=== PATIENT | male | born 1960 | race Caucasian/White ===

== ENCOUNTER 2019-03-29 07:35 | Day surgery (SDC) | payer BC ==
[~2019-03-29] VITALS: Ht 180.3 cm; Wt 82.9 kg
[2019-03-29] VITALS (9 sets, daily range): BP systolic 99–139; BP diastolic 75–92; PULSE 55–74; TEMP 97.3–97.8
--- NOTE | 2019-03-29 09:05 | NUR ---
Pt returns from endo procedure. Pt ambulates from cart to recliner with RN assist. Monitors on and alarms set. Call light within reach. Report received from KLARISSA Mendoza. Pt is very drowsy, but answers questions appropriately but slowly. Pt's gag reflex has not returned. Pt has no complaints of pain or nausea. Family not present in waiting room.
--- NOTE | 2019-03-29 09:15 | NUR ---
Pt remains drowsy, but answers appropriately.
--- NOTE | 2019-03-29 09:30 | NUR ---
Pt remains drowsy and answers questions appropriately and with delay. Admitting nurse stated this was how he responded pre-operatively.
--- NOTE | 2019-03-29 09:45 | NUR ---
Pt remains drowsy and with no complaints.
--- NOTE | 2019-03-29 10:00 | NUR ---
Pt's gag reflex still not returned. Pt remains drowsy and answering questions as before.
--- NOTE | 2019-03-29 10:15 | NUR ---
Pt remains as prior. No complaints.
--- NOTE | 2019-03-29 10:21 | NUR ---
Pt's gag reflex still not present. Give pt sips of cold water. Pt takes water well and without complication.
--- NOTE | 2019-03-29 10:30 | NUR ---
Pt remains drowsy, less so than before, but still drowsy. Pt has no complaints.
--- NOTE | 2019-03-29 10:45 | NUR ---
Pt more alert now. Pt answers questions appropriately and still with delay as pre-operatively. Pt desiring discharge. Son present and brought to room.
--- NOTE | 2019-03-29 11:00 | NUR ---
Discharge instructions given to patient and son. Encouraged both to stop by their pharmacy to fill and pickling operator the PPI that had already been prescribed. Both voiced understanding.
--- NOTE | 2019-03-29 11:00 | NUR ---
Discharge instructions given to patient and son. Encouraged both to stop by their pharmacy to fill and leaf size picker the PPI that had already been prescribed. Both voiced understanding. Handed to patient are a thank you card, discharge instructions, diagnosis information, procedural photos, and a discharge med sheet. All questions answered to their satisfaction.
--- NOTE | 2019-03-29 11:20 | NUR ---
Pt transferred out of hospital via wheelchair and this RN to private vehicle driven by son.
== END 2019-03-29 11:20 | disposition home or self-care (01) ==
LOC: SDCO 07:35
DX: K21.0 Gastro-esophageal reflux disease with esophagitis (principal); K29.30 Chronic superficial gastritis without bleeding; K29.80 Duodenitis without bleeding; K63.9 Disease of intestine, unspecified; Z88.0 Allergy status to penicillin; E78.00 Pure hypercholesterolemia, unspecified; Z80.0 Family history of malignant neoplasm of digestive organs
CPT/HCPCS: J2250; J3010; J7030